=== PATIENT | male | born 1930 | race Caucasian/White ===

== ENCOUNTER 2019-09-29 10:41 | Day surgery (SDC) | payer OTHER ==
--- NOTE | 2019-09-26 15:30 | RAD REPORT ---
EXAM DESCRIPTION: RAD - Chest Pa And Lat (2 Views) - 09/26/2019 3:24 pm CLINICAL HISTORY: pre op, pending heart catheterization COMPARISON: Chest exam May 2010 TECHNIQUE: Frontal and lateral views of the chest were obtained. FINDINGS: The lungs are clear. Interstitial pattern not substantially different from comparison. No new or enlarging mediastinal or hilar finding seen. Right hemidiaphragm elevation again noted. Heart size is normal and central vasculature is within normal limits. No pleural effusion or pneumothorax seen. No acute bony finding noted. No aortic abnormality. IMPRESSION: No acute cardiopulmonary process. No worrisome change from comparison.
[2019-09-26 16:27] LABS: Protime INR 1.29
[2019-09-26 16:30] LABS: Absolute Lymphocytes (CBC) 2.4 K/uL (0.7-4.9); Basophils % 0.6 % (0-1.3); Hematocrit 37.5 % (39.6-49.0); Lymphocytes % 36.6 % (15.3-44.8); MPV 7.8 fL (7.6-11.3); RBC Red Blood Cell Count 4.49 M/uL (4.33-5.43)
--- NOTE | 2019-09-28 12:36 | EKG ---
Test Date: 2019-09-26 Test Time: 15:10:36 Cytogenetics Laboratory Manager: CARMELO MEASUREMENT RESULTS: Intervals: Rate: 63 IL: 240 QRSD: 162 QT: 482 QTc: 493 [place]: P: 63 IL: 240 QRS: 20 T: 96 INTERPRETIVE STATEMENTS: Sinus rhythm with sinus arrhythmia with 1st degree AV block Left bundle branch block Abnormal ECG Compared to ECG 06/24/2003 21:30:00 First degree AV block now present Left bundle-branch block now present Atrial premature complex(es) no longer present Electronically Signed On 09-28-19 12:31:53 CDT by Dominic Colby
--- OUTSIDE RECORDS SUMMARY | 2019-09-29 10:51 | XMS REPORT | Clinical Summary ---
:1930 Author Organization [facility] Address [address] [place] [address] Care Team Providers Name Role Phone Asked, Pcp Primary Care Provider Unavailable Allergies No Known Allergies Medications Medication Sig Dispensed Refills Start Date End Date Status atorvastatin (LIPITOR) Take 20 mg by 0 07/20/2015 Active 20 MG tablet mouth once. cetirizine (ZyrTEC) 5 MG Take 5 mg by 0 Active tablet mouth daily. Active Problems Problem Noted Date Encounter for follow-up surveillance of rectal cancer Social History Tobacco Use Types Packs/Day Years Used Date Former Smoker Comments: smoked many years ago . Sex Assigned at Date Recorded Not on file Job Start Date Occupation Industry Not on file Not on file Not on file Travel History Travel Start Travel End No recent travel history available. 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
[2019-09-29] MEDS ORDERED: NA CHLORIDE 0.9% 500 ML ONE (11:29)
[2019-09-29] MEDS ORDERED: HEPA 1000U/500MLS 2,000 UNIT/1,000 ML BAG IV ONE (12:02)
[2019-09-29] MEDS ORDERED: ATROPINE SULF 1 MG/10 ML SYR IV ONE (12:03)
[2019-09-29] MEDS ORDERED: HEPARIN 5000 UNIT/ML 1 ML VIAL ONE (12:03)
[2019-09-29] MEDS ORDERED: LIDOCAINE 1% MPF 30 ML VIAL ONE (12:03)
[2019-09-29] MEDS ORDERED: MIDAZOLAM HCL 2 MG/2 ML INJ ONE (12:03)
[2019-09-29] MEDS ORDERED: FENTANYL CITR 100 MCG/2 ML ONE (12:03)
[2019-09-29] MEDS ORDERED: NICARDIPINE HCL 25 MG/10 ML IV ONE (12:05)
[2019-09-29] MEDS ORDERED: NITROGLYCERIN 100 MCG/ML SYR (for cath lab use only) IV ONE (12:05)
[2019-09-29] MEDS ORDERED: NITROGLYCERIN/D5W 25 MG/250 ML BTL IV ONE (12:05)
[2019-09-29] MEDS ORDERED: CLOPIDOGREL 75 MG TABLET ONE ×2 (13:00→13:01)
[2019-09-29] MEDS ORDERED: NITROGLYCERIN 0.4 MG/TAB SL PRN (15:15)
[2019-09-29] MEDS ORDERED: ACETAMINOPHEN 325 MG TABLET PO PRN (15:16)
[2019-09-29 15:43] VITALS: O2SAT 95
--- NOTE | 2019-09-29 16:58 | P.CNS ---
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 Patient had scheduled a heart catheterization with stent placement. Cardiology wishes to keep patient overnight for observation. The hospitalist service has been consulted for medical management. Allergies No Known Allergies Allergy (Unverified 09/26/19 15:03) Home medications list reviewed: Yes - Past Medical/Surgical History -: Atrial fibrillation -: Hypertension -: Hyperlipidemia -: Hypothyroidism -: Cholecystectomy Psychosocial/ Personal History: Patient lives with his - Family History Father Medical History: Heart disease Mother Medical History: Heart disease - Social History Smoking Status: Never smoker Alcohol use: No CD- Drugs: No Caffeine use: Yes Place of Residence: Home Review of Systems Unremarkable Physical Examination Temp Pulse Resp BP Pulse Ox 97.1 F 64 16 134/47 L 09/29/19 16:10 09/29/19 16:10 09/29/19 16:10 09/29/19 16:10 General: Alert, In no apparent distress HEENT: Atraumatic, PERRLA, Mucous membr. moist/pink, EOMI, Sclerae nonicteric Neck: Supple, Without JVD or thyroid abnormality Respiratory: Clear to auscultation bilaterally, Normal air movement Cardiovascular: Regular rate/rhythm, Normal S1 S2 Gastrointestinal: Normal bowel sounds, No tenderness Musculoskeletal: No tenderness Integumentary: No rashes Neurological: Normal gait, Normal speech, Normal tone, Normal affect Conclusions/Impression: Assessment Status post PCI for CAD Atrial fibrillation on chronic anticoagulation therapy Hypertension Hyperlipidemia Hypothyroidism Plan Status post PCI for CAD: Patient to be observed overnight on telemetry. Patient doing well at this time is without chest pain. At discharge patient will continue with Eliquis 2.5 mg p.o. b.i.d., Plavix 75 mg p.o. daily, aspirin 81 mg p.o. daily. Patient to follow up Cardiology in approximately 1 month. Atrial fibrillation on chronic anticoagulation therapy: Continue Eliquis. Patient to remain on telemetry throughout this hospitalization. Hypertension: Continue patient's metoprolol. Hyperlipidemia: Patient's Lipitor dose has been adjusted to 40 mg p.o. at bedtime. Hypothyroidism: Continue patient's levothyroxine. Critical Care: No Time Spent Managing Pts care (In Minutes): 55
--- NOTE | 2019-09-29 17:19 | P.DS ---
Admission Date: 09/29/19 Discharge Date: 09/30/19 Primary Care Provider: Frank Disposition: ROUTINE DISCHARGE Discharge Condition: GOOD Reason for Admission: Status post PCI Consultations: Cardiology- Dr. Elmore Procedures: Heart catheterization Was completed with stenting. 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 Patient had scheduled a heart catheterization with stent placement. Cardiology wishes to keep patient overnight for observation. The hospitalist service has been consulted for medical management. Hospital Course: The patient was admitted last night for overnight observation after PCI. Patient did well overnight, no complaints of chest pain. No new complaints, vital signs and labs stable. Patient stable for discharge at this time. Patient with significant CAD, at discharge Patient will go home on Eliquis 2.5 mg p.o. b.i.d., Plavix 75 mg p.o. once daily, aspirin 81 mg p.o. once daily for 1 month. Patient need to follow up with cardiology in 1 month at which time they will likely discontinue the aspirin therapy. Patient history of hypertension, discharge patient can continue with metoprolol 12.5 mg p.o. once daily. Further adjustments can be made by primary care doctor. Patient history of hyperlipidemia, cardiology has adjusted atorvastatin dose to 40 mg p.o. at bedtime. Patient with history of hypothyroidism, recommend continuing with current dose. Further changes can be made by primary care doctor. Strict return precautions are to be given to patient for new or worsening chest pain. Vital Signs/Physical Exam: Temp Pulse Resp BP Pulse Ox 97.1 F 64 16 134/47 L 09/29/19 16:35 09/29/19 16:35 09/29/19 16:35 09/29/19 16:35 General: Alert, In no apparent distress HEENT: Atraumatic, PERRLA, EOMI Neck: Supple, JVD not distended Respiratory: Clear to auscultation bilaterally, Normal air movement Cardiovascular: Regular rate/rhythm, Normal S1 S2 Gastrointestinal: Normal bowel sounds, No tenderness Musculoskeletal: No tenderness Integumentary: No rashes Neurological: Normal speech, Normal tone, Normal affect Laboratory Data at Discharge: WBC 6.5 K/uL (4.3-10.9) 09/26/19 15:17 Hgb 12.3 g/dL (13.6-17.9) L 09/26/19 15:17 Hct 37.5 % (39.6-49.0) L 09/26/19 15:17 Plt Count 168 K/uL (152-406) 09/26/19 15:17 PT 15.1 SECONDS (9.5-12.5) H 09/26/19 15:17 INR 1.29 09/26/19 15:17 APTT 48.2 SECONDS (24.3-36.9) H 09/26/19 15:17 Sodium 145 mmol/L (136-145) 09/26/19 15:17 Potassium 4.0 mmol/L (3.5-5.1) 09/26/19 15:17 BUN 14 mg/dL (7-18) 09/26/19 15:17 Creatinine 1.04 mg/dL (0.55-1.3) 09/26/19 15:17 Glucose 98 mg/dL (74-106) 09/26/19 15:17 Patient Discharge Instructions: 1. Please follow up with the primary care doctor in 1-2 weeks to follow up this hospitalization. 2. Please follow up with cardiology in 1 month. 3. The patient was admitted last night for overnight observation after PCI. Patient did well overnight, no complaints of chest pain. No new complaints, vital signs and labs stable. Patient stable for discharge at this time. Patient with significant CAD, at discharge Patient will go home on Eliquis 2.5 mg p.o. b.i.d., Plavix 75 mg p.o. once daily, aspirin 81 mg p.o. once daily for 1 month. Patient need to follow up with cardiology in 1 month at which time they will likely discontinue the aspirin therapy. Patient history of hypertension, discharge patient can continue with metoprolol 12.5 mg p.o. once daily. Further adjustments can be made by primary care doctor. Patient history of hyperlipidemia, cardiology has adjusted atorvastatin dose to 40 mg p.o. at bedtime. Patient with history of hypothyroidism, recommend continuing with current dose. Further changes can be made by primary care doctor. Strict return precautions are to be given to patient for new or worsening chest pain. Diet: AHA Activity: Ad luna Time spent managing pt's care (in minutes): 55
[2019-09-29] MEDS: NA CHLORIDE 0.9% 1,000 ML IV SCH (18:06)
[2019-09-29 18:11] VITALS: BMI 22.9
[2019-09-29] MEDS ORDERED: ATORVASTATIN 40 MG TAB PO SCH (21:00)
[2019-09-29] MEDS ORDERED: APIXABAN 2.5 MG TABLET PO SCH (21:00)
--- NOTE | 2019-09-29 22:26 | OP ---
Date of Procedure: 09/29/2019 Surgeon: CIERA AGUIRRE Procedures Performed: 1.Selective coronary angiogram. 2.Left heart catheterization. 3.Percutaneous coronary intervention of severe proximal to mid left circumflex stenosis, stenosis se verity is 95%, lesion length is 12 mm, tortuous and heavily calcified. residual stenosis is 0% and SAMARIA-3 flow post percutaneous coronary intervention and we used 3.0 x 16 mm Synergy drug-el uting stent, post dilated using 3.25 x 12 mm NC balloon. Indication: New drop in ejection fraction and unstable angina. Access: Right radial artery 6-Slovak, closed with TR band. Complications: None. Bleeding: Less than 10 mL. Description Of Procedure: After risks, benefits, and alternatives were explained to the patient, he agreed to the procedure and signed informed consent. The patient was brought into the cardiac cathet erization laboratory, prepped and draped in usual sterile fashion. Right radial artery was accessed using a pediatric micropuncture kit and then put a 6-Slovak slender sheath and took a 5-Slovak [place] catheter over J-wire into the aortic root, engaged the left main coronary artery, then right coronary artery and we took standard views, now proceeded to the intervention part. Intervention Details: We gave systemic heparin to assure ACT level above 250 throughout the procedur e and we took a 6-Slovak 3.5 EBU guide into the aortic root over a J-wire, engaged left main coronary artery and then we took short run-through into the left main coronary artery and then left circumfle x artery across the area of stenosis and we took a 2.5 x 15 mm Compliant balloon, pre-dilated the les ion. Then, we took a 3.0 x 16 mm Synergy drug-eluting stent and deployed successfully across the are a of stenosis. Then, we used a 3.25 x 12 mm NC balloon to post dilate the whole stent with excellent results. Then, we removed all wires and guide out from the body and the sheath was removed and appl ied TR band on the access site. Findings: 1.Left main is short with luminal irregularities. 2.LAD large artery with 40% to 50% mid LAD 2 different areas of stenosis. 3.Left circumflex coronary artery has a severe proximal to mid stenosis 95%, status post PCI as abov e and there is an ostial 50% stenosis that was left for IVUS evaluation. 4.RCA is large dominant artery with patent stents and has earlier in the midportion tortu osity of the vessel that appears to be in certain views very severe. However, in other views, appear s to be moderate and recommended for that also IVUS evaluation. Impression: 1.Severe left circumflex coronary artery disease, status post percutaneous coronary intervention as above. 2.Moderate left anterior descending disease and moderate ostial left circumflex disease. Needs furt her evaluation using fractional flow reserve/intravascular ultrasound. 3.Recommend intravascular ultrasound evaluation of the mid right coronary artery stenosis to further evaluate the severity and the need for percutaneous coronary intervention. We will schedule this to be done in the next 2 to 3 weeks due to contrast load that the patient received today. 4.The patient was loaded with 600 mg of Plavix. Continue 75 mg of Plavix daily, aspirin 81 mg daily , and Eliquis 2.5 mg twice a day for atrial fibrillation for 4 months and then to drop the aspirin af ter that. I will see the patient in the office 4 weeks post discharge. /DESTINI Voice ID: [id number] Report ID: [id number]
[2019-09-30] MEDS: NA CHLORIDE 0.9% 1,000 ML IV SCH (05:20)
[2019-09-30 06:23] LABS: Absolute Lymphocytes (CBC) 2.4 K/uL (0.7-4.9); Basophils % 0.8 % (0-1.3); Hematocrit 38.7 % (39.6-49.0); Lymphocytes % 30.1 % (15.3-44.8); MPV 7.6 fL (7.6-11.3); RBC Red Blood Cell Count 4.68 M/uL (4.33-5.43)
[2019-09-30] MEDS ORDERED: LEVOTHYROXINE SOD 0.025 MG TAB PO SCH (06:30)
[2019-09-30 06:52] LABS: Potassium 4.1 mmol/L (3.5-5.1)
[2019-09-30 08:50] VITALS: BP 157/72; TEMP 97.9
[2019-09-30] MEDS ORDERED: METOPROLOL XL 25 MG TAB PO SCH (09:00)
--- NOTE | 2019-09-30 19:12 | DS ---
Date of Discharge: 09/30/2019 The patient was admitted on 09/29/[address] as an outpatient [address]. Elmore. Today is 09/30/2019, he is be ing discharged. Brief History Of Present Illness: Mr. Tavera is an 88-year-old male with history of coronary artery d isease, recent recurrent chest pain, positive stress test. Yesterday, he underwent a catheterization with an angioplasty and stent of the circumflex. This was done by Dr. Elmore. Overnight, he did re ally well. His vital signs were stable. He was afebrile. He had no complaint. His right wrist ent ry site with a catheterization was normal without any evidence of bleeding or hematoma. We will plan to discharge him home today on his home medications plus Plavix 75 mg daily. He will continue his E liquis, but no aspirin. He will continue a low-fat, low-cholesterol diet. Continue his statin. Res ume normal activities in 48 hours. He will come to see us in the office in the next 2 weeks. BRADLEY/DESTINI Voice ID: [id number] Report ID: [id number]
== END 2019-09-30 09:34 | disposition home or self-care (01) ==
LOC: PRE 10:41 → 2ND 13:20 → CCL 09-30 09:34
PROVIDERS: ATTEND Internal Medicine
DX: I25.110 Atherosclerotic heart disease of native coronary artery with unstable angina pectoris (principal); I11.0 Hypertensive heart disease with heart failure; I50.22 Chronic systolic (congestive) heart failure; I48.20 Chronic atrial fibrillation, unspecified; I65.29 Occlusion and stenosis of unspecified carotid artery; E78.5 Hyperlipidemia, unspecified; Z11.59 Encounter for screening for other viral diseases; Z95.5 Presence of coronary angioplasty implant and graft; Z87.891 Personal history of nicotine dependence; Z82.49 Family history of ischemic heart disease and other diseases of the circulatory system
CPT/HCPCS: 93005; 85025 ×2; 80048 ×2; 36415 ×2; 85610; 85347; 85730; 71046; 93458; U0002; C1893; C1725; C9600; J1644 ×2; J2250; J3010; J7040; J7030